=== PATIENT | male | born 1945 | race Caucasian/White ===

== ENCOUNTER 2017-01-14 11:08 | Emergency (ER) | payer OTHER, MEDICARE, BC ==
[2017-01-14 11:23] VITALS: BP 156/86
[2017-01-14] MEDS ORDERED: Lidocaine 1% 50 ML MDV INJECT ONE (11:40)
[2017-01-14] MEDS ORDERED: Acetaminophen 325 MG Tab PO ONE (11:40)
--- NOTE | 2017-01-14 12:26 | CR ---
Chest and right ribs: Frontal view of the chest was obtained as well as 3 views of the right ribs. Comparison: Previous chest x-ray of 03/15/14. Heart size is normal. Tortuous thoracic aorta is seen. Lungs are clear. Degenerative endplate spurring noted within the spine. No discrete fracture or other right sided rib abnormality is seen. Impression: 1. No discrete right sided rib abnormality is appreciated. 2. Nothing acute is seen on accompanying chest x-ray. Diagnostic code #2
--- NOTE | 2017-01-14 13:04 | EDM.PDOC ---
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 He ended up with contusion injury to his left thigh, injury to his right chest and laceration injuries to the right small distal finger tip. Right chest pain is worse with deep breathing and with movement. He has been ambulatory. No LOC. No nausea vomiting. No major neck or back discomfort. Left Leg Pain Score (Numeric/FACES): 6 Right Chest Pain Score (Numeric/FACES): 6 - Related Data Allergies Allergy/AdvReac Type Severity Reaction Status Date / Time Sulfa (Sulfonamide Allergy Hives Verified 01/14/17 11:23 Antibiotics) Home Meds: Home Meds Aspirin [Adult Low Dose Aspirin EC] 81 mg PO DAILY 09/06/14 [History] Hydrochlorothiazide 25 mg PO DAILY 09/06/14 [History] Metoprolol Succinate [Toprol XL] 25 mg PO DAILY 09/06/14 [History] Multivitamin [Multivitamins] 1 each PO DAILY 09/06/14 [History] Rosuvastatin [Crestor] 5 mg PO DAILY 09/06/14 [History] Tamsulosin [Flomax] 0.4 mg PO DAILY 09/06/14 [History] Ubidecarenone [Co Q-10] 100 mg PO DAILY 09/06/14 [History] Saw/Vit E/Sod Mona/Lyc/Beta/Pyg [Prostate Health Caplet] 1 tab PO DAILY 04/12/16 [History] Glucosamine/Chondro Nolasco A [Cosamin DS] 1 tab PO DAILY 01/14/17 [History] Past Medical History HEENT History: Reports: Impaired Vision, Other (See Below) Other HEENT History: wears glasses, dentures Cardiovascular History: Reports: CAD, High Cholesterol, Hypertension, [place], Stents Respiratory History: Reports: Asthma Gastrointestinal History: Reports: GERD Genitourinary History: Reports: BPH, Prostate Disorder, Retention, Urinary, Other (See Below) Other Genitourinary History: retention, L hydronephrosis, R renal cyst, elevated PSA, hesitency, renal insufficiency, prosate biopsy, cystoscopy, prostate surgery 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 Musculoskeletal History: Reports: Other (See Below) Other Musculoskeletal History: restless legs syndrome, degenerative joint disease Psychiatric History: Reports: None Hematologic History: Reports: None Immunologic History: Reports: None Oncologic (Cancer) History: Reports: Squamous Cell Carcinoma Dermatologic History: Reports: Other (See Below) Other Dermatologic History: lip cancer, lipoma excision - Past Surgical History GI Surgical History: Reports: Colonoscopy, EGD Musculoskeletal Surgical History: Reports: Other (See Below) Social & Family History - Family History Family Medical History: Noncontributory - Tobacco Use Smoking Status *Q: Unknown Ever Smoked Month Tobacco Last Used: 1968 - Caffeine Use Caffeine Use: Reports: None - Recreational Drug Use Recreational Drug Use: No Drug Use in Last 12 Months: No Review of Systems - Review of Systems Review Of Systems: See Below Constitutional: Reports: No Symptoms Eyes: Reports: No Symptoms Ears: Reports: No Symptoms Nose: Reports: No Symptoms Mouth/Throat: Reports: No Symptoms Respiratory: Reports: Pleuritic Chest Pain (Right-sided). Denies: Shortness of Breath, Hemoptysis Cardiovascular: Reports: Chest Pain GI/Abdominal: Denies: Abdominal Pain (Right-sided), Nausea, Vomiting Musculoskeletal: Denies: Neck Pain, Arm Pain, Back Pain Skin: Reports: Bruising (Large bruise left medial thigh) Neurological: Denies: Headache, Numbness, Tingling ED EXAM, GENERAL - Physical Exam Exam: See Below General Appearance: Alert, Mild Distress Eye Exam: Bilateral Eye: PERRL Throat/Mouth: Normal Inspection Head: Atraumatic. No: Facial Swelling Neck: Supple, Full Range of Motion Respiratory/Chest: No Respiratory Distress, Lungs Clear, Other (Tender right anterior lateral lower chest wall area, no bruising or abrasion, no swelling). No: Wheezing, Stridor, Splinting Cardiovascular: Regular Rate, Rhythm GI/Abdominal: Soft, Non-Tender Back Exam: Normal Inspection Extremities: Normal Inspection, Normal Range of Motion Neurological: Alert, Oriented, No Motor/Sensory Deficits Skin Exam: Warm, Dry, Normal Color Course - Vital Signs Last Recorded V/S: Last Vital Signs Temp 97.9 F 01/14/17 11:19 Pulse 74 01/14/17 11:19 Resp 18 01/14/17 11:19 BP 156/86 H 01/14/17 11:19 Pulse Ox 100 01/14/17 11:19 - Orders/Labs/Meds Meds: Medications Discontinued Medications Generic Name Dose Route Start Last Admin Trade Name Eyad PRN Reason Stop Dose Admin Acetaminophen 975 mg 01/14/17 11:40 01/14/17 11:53 Tylenol PO 01/14/17 11:41 975 mg NOW ONE Administration Lidocaine HCl 50 ml 01/14/17 11:40 01/14/17 11:53 Xylocaine 1% INJECT 01/14/17 11:41 50 ml ONETIME ONE Administration Departure - Departure Time of Disposition: 13:00 Disposition: Home, Self-Care 01 Condition: Fair Clinical Impression: Finger laceration Qualifiers: Encounter type: initial encounter Finger: little finger Damage to nail status: without damage Foreign body presence: without foreign body Laterality: right Qualified Code(s): S61.216A - Laceration without foreign body of right little finger without damage to nail, initial encounter Chest wall contusion Qualifiers: Encounter type: initial encounter Laterality: right Qualified Code(s): S20.211A - Contusion of right front wall of thorax, initial encounter Contusion of thigh, left Qualifiers: Encounter type: initial encounter Qualified Code(s): S70.12XA - Contusion of left thigh, initial encounter - Discharge Information Instructions: Contusion, [id number], Laceration Care, Adult, [id number] Referrals: Jenna Paul [facility] [Ordering Only Provider] - Forms: ED Department Discharge, ED Return to Work/School Form Additional Instructions: Laceration care instructions, leave dressing on until tomorrow evening, then change once or twice daily, keep protected well when you do return back to work , stitches out in about 10 days. There is no charge if you have those taken out at our [facility] medical clinic. Alternate Tylenol and ibuprofen as needed for discomfort, Edward wrap left thigh, specs and elevation for swelling right if possible for recheck, return to ED as needed.
== END 2017-01-14 13:50 | disposition home or self-care (01) ==
LOC: JD.ED 11:08
DX: S61.216A Laceration without foreign body of right little finger without damage to nail, initial encounter (principal); S20.211A Contusion of right front wall of thorax, initial encounter; S70.12XA Contusion of left thigh, initial encounter; E78.00 Pure hypercholesterolemia, unspecified; I10 Essential (primary) hypertension; Z88.2 Allergy status to sulfonamides; Z79.82 Long term (current) use of aspirin; Z79.899 Other long term (current) drug therapy; X58.XXXA Exposure to other specified factors, initial encounter; Y93.89 Activity, other specified
CPT/HCPCS: 71101; 99283; A9270; 12011

== ENCOUNTER 2017-02-26 08:46 | Emergency (ER) | payer OTHER, MEDICARE, BC ==
[2017-02-26] MEDS ORDERED: HYDROmorphone 1 MG/ML Syringe IVPUSH ONE (08:59)
[2017-02-26] MEDS ORDERED: Lidocaine 1% 10 ML MDV INJECT ONE (09:00)
[2017-02-26] MEDS ORDERED: Dextrose 5%-0.9% NaCl 1,000 ML IV SCH (09:00)
[2017-02-26] MEDS ORDERED: Metoclopramide 10 MG/2 ML SDV IVPUSH ONE (09:00)
[2017-02-26 09:03] VITALS: BP 153/87
--- NOTE | 2017-02-26 09:04 | EDM.PDOC ---
ED HPI GENERAL MEDICAL PROBLEM - General Chief Complaint: Trauma Stated Complaint: SHOULDER PAIN, LIP LAC Time Seen by Provider: 02/26/17 08:59 Source of Information: Reports: Patient History Limitations: Reports: No Limitations - History of Present Illness INITIAL COMMENTS - FREE TEXT/NARRATIVE: 71-year-old male presents the ED after being injured in the workplace this morning. At approximate 0830 hrs. this morning while working at the [employer] he was knocked down and then mauled by a cow. He states he was struck repeatedly by her head in the left arm and shoulder area. He suffered blunt force trauma to his midface is well. This resulted in a laceration to his inner upper lip. States he has severe pain and limited mobility of his left shoulder. He has had previous traumatic dislocation of the shoulder in the past and believes he had surgical repair 1. No loss of consciousness. He denies any head injury or neck injury. Denies any rib pain breathing is fine. He can walk without difficulties in his knees hips or lower back. 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) (None.) Left Shoulder Pain Score (Numeric/FACES): 2 - Related Data Allergies Allergy/AdvReac Type Severity Reaction Status Date / Time Sulfa (Sulfonamide Allergy Hives Verified 02/26/17 08:57 Antibiotics) Home Meds: Home Meds Aspirin [Adult Low Dose Aspirin EC] 81 mg PO DAILY 09/06/14 [History] Hydrochlorothiazide 25 mg PO DAILY 09/06/14 [History] Metoprolol Succinate [Toprol XL] 25 mg PO DAILY 09/06/14 [History] Multivitamin [Multivitamins] 1 each PO DAILY 09/06/14 [History] Rosuvastatin [Crestor] 5 mg PO DAILY 09/06/14 [History] Tamsulosin [Flomax] 0.4 mg PO DAILY 09/06/14 [History] Ubidecarenone [Co Q-10] 100 mg PO DAILY 09/06/14 [History] Saw/Vit E/Sod Mona/Lyc/Beta/Pyg [Prostate Health Caplet] 1 tab PO DAILY 04/12/16 [History] Glucosamine/Chondro Nolasco A [Cosamin DS] 1 tab PO DAILY 01/14/17 [History] Past Medical History HEENT History: Reports: Impaired Vision, Other (See Below) Other HEENT History: wears glasses, dentures Cardiovascular History: Reports: CAD, High Cholesterol, Hypertension, [place], Stents Respiratory History: Reports: Asthma Gastrointestinal History: Reports: GERD Genitourinary History: Reports: BPH, Prostate Disorder, Retention, Urinary, Other (See Below) Other Genitourinary History: retention, L hydronephrosis, R renal cyst, elevated PSA, hesitency, renal insufficiency, prosate biopsy, cystoscopy, 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 Musculoskeletal History: Reports: Other (See Below) Other Musculoskeletal History: restless legs syndrome, degenerative joint disease Psychiatric History: Reports: None Hematologic History: Reports: None Immunologic History: Reports: None Oncologic (Cancer) History: Reports: Squamous Cell Carcinoma Dermatologic History: Reports: Other (See Below) Other Dermatologic History: lip cancer, lipoma excision - Past Surgical History GI Surgical History: Reports: Colonoscopy, EGD Musculoskeletal Surgical History: Reports: Other (See Below) Social & Family History - Family History Family Medical History: Noncontributory - Tobacco Use Smoking Status *Q: Unknown Ever Smoked Month Tobacco Last Used: 1968 - Caffeine Use Caffeine Use: Reports: None - Recreational Drug Use Recreational Drug Use: No Drug Use in Last 12 Months: No - Living Situation & Occupation Living situation: Reports: Occupation: Employed Review of Systems - Review of Systems Review Of Systems: See Below Constitutional: Reports: No Symptoms Eyes: Reports: No Symptoms Ears: Reports: No Symptoms Nose: Reports: No Symptoms Mouth/Throat: Reports: Lip Swelling (Has a swollen left upper lip and a 1.5 cm jagged laceration to the inner surface of the lip where came in contact with his dentures.), Other (Small caught right lower lip that will not require sutures.). Denies: Loose Teeth, Pain, Throat Swelling, Hoarse Voice Respiratory: Reports: No Symptoms Cardiovascular: Reports: No Symptoms GI/Abdominal: Reports: No Symptoms Genitourinary: Reports: Other (Has known BPH.) Musculoskeletal: Reports: Other Skin: Reports: No Symptoms Neurological: Reports: No Symptoms ED EXAM, GENERAL - Physical Exam Exam: See Below Exam Limited By: No Limitations General Appearance: Alert, WD/WN, Mild Distress, Other (Obvious trauma to the midface.) Eye Exam: Bilateral Eye: Normal Inspection, PERRL Throat/Mouth: Other (Has a laceration to the inner aspect of the upper lip in the midline and is a jagged 1.5 cm laceration. It appears to come in contact with his dentures. Dentures appear to be intact. Small puncture wound to the right lower lip with that will not require sutures.) Head: Atraumatic, Normocephalic Neck: Normal Inspection, Supple, Non-Tender, Full Range of Motion. No: Lymphadenopathy (L), Lymphadenopathy (R) Respiratory/Chest: No Respiratory Distress, Lungs Clear, Normal Breath Sounds, Other (From compression of his ribs and sternum caused him no pain) Cardiovascular: Normal Peripheral Pulses, Regular Rate, Rhythm, No Edema, No Gallop, No Murmur Peripheral Pulses: 1+: Posterior Tibial (L), Posterior Tibial (R), Dorsalis Pedis (L), Dorsalis Pedis (R) GI/Abdominal: Normal Bowel Sounds, Soft, Non-Tender, No Organomegaly, No Abnormal Bruit, No Mass Back Exam: Normal Inspection, Full Range of Motion. No: CVA Tenderness (L), CVA Tenderness (R) Extremities: Normal Inspection, Limited Range of Motion (Patient has very limited forward flexion or abduction of the left shoulder. He does have full pronation supination at the elbow. The wrist has full flexion-extension abduction and abduction. Clinically he has flattening of the shoulder laterally suggesting an anterior dislocation.) Neurological: Alert, Oriented, CN II-XII Intact, Normal Cognition, Normal Gait, No Motor/Sensory Deficits Psychiatric: Normal Affect, Normal Mood Skin Exam: Warm, Dry, Intact, Normal Color, No Rash ED TRAUMA PROCEDURES - Laceration/Wound Repair Middle Face Lac/Wound Length In cm: 3.5 (Patient had 2 lacerations involving his midline of upper lip. The superiormost lesion was 1 cm in length and sutured 2. The lower lesion was 2.5 cm in length and sutured 5.) Appearance: Subcutaneous, Clean Anesthetic Type: Local Local Anesthesia - Lidocaine (Xylocaine): 1% Plain Local Anesthetic Volume: 4cc Exploration/Debridement/Repair: Minimal Debridement Closed With: Sutures Suture Size: 4-0 # of Sutures: 8 Repaired With: Vicryl - Joint Reduction Site: Shoulder (L) Sedation: Conscious Sedation (Utilized 5 mg of Versed and 100 mg of fentanyl to provide satisfactory sedation.) Pre-Procedure NV Status: Normal Post-Procedure NV Status: Normal Technique: Traction/Counter Traction Number of Attempts: 2 Post-Reduction Imaging: Completely Reduced, No Fracture Seen Joint Reduction Complications: No Course - Vital Signs Last Recorded V/S: Last Vital Signs Temp 36.3 C 02/26/17 08:57 Pulse 74 02/26/17 08:57 Resp 16 02/26/17 08:57 BP 153/87 H 02/26/17 08:57 Pulse Ox 96 02/26/17 08:57 - Orders/Labs/Meds Orders: Active Orders 24 hr Category Date Time Status Dextrose 5%-0.9% NaCl [Dextrose 5%-Normal Saline] 1,000 Med 02/26/17 09:00 Active ml IV ASDIRECTED Medication Orders Dextrose/Sodium Chloride (Dextrose 5%-Normal Saline) 1,000 mls @ 150 mls/hr IV ASDIRECTED RIMA Last Admin: 02/26/17 09:33 Dose: 150 mls/hr Meds: Medications Generic Name Dose Route Start Last Admin Trade Name Freq PRN Reason Stop Dose Admin Dextrose/Sodium Chloride 1,000 mls @ 150 mls/hr 02/26/17 09:00 02/26/17 09:33 Dextrose 5%-Normal Saline IV 150 mls/hr ASDIRECTED RIMA Administration Discontinued Medications Generic Name Dose Route Start Last Admin Trade Name Freq PRN Reason Stop Dose Admin Fentanyl 100 mcg 02/26/17 09:41 02/26/17 10:08 Sublimaze IVPUSH 02/26/17 09:42 100 mcg ONETIME ONE Administration Fentanyl Confirm 02/26/17 09:45 02/26/17 10:01 Sublimaze Administered 02/26/17 09:46 Not Given Dose 100 mcg .ROUTE .STK-MED ONE Hydromorphone HCl 1 mg 02/26/17 08:59 02/26/17 09:18 Dilaudid IVPUSH 02/26/17 09:00 1 mg ONETIME ONE Administration Lidocaine HCl 10 ml 02/26/17 09:00 02/26/17 09:18 Xylocaine 1% INJECT 02/26/17 09:01 10 ml ONETIME ONE Administration Metoclopramide HCl 7.5 mg 02/26/17 09:00 02/26/17 09:18 Reglan IVPUSH 02/26/17 09:01 7.5 mg ONETIME ONE Administration Midazolam HCl 5 mg 02/26/17 09:41 02/26/17 10:21 Versed 1 Mg/Ml IVPUSH 02/26/17 09:42 Not Given ONETIME ONE Midazolam HCl Confirm 02/26/17 09:46 02/26/17 10:01 Versed 1 Mg/Ml Administered 02/26/17 09:47 Not Given Dose 6 mg .ROUTE .STK-MED ONE Midazolam HCl 5 mg 02/26/17 10:13 02/26/17 09:48 Versed 1 Mg/Ml IVPUSH 02/26/17 10:14 5 mg ONETIME ONE Administration - Radiology Interpretation Free Text/Narrative:: 71-year-old male presents to the ED with work-related injuries. Patient states he works at the [employer] and was knocked down by a cow this morning. He was then more by her head extensively with blunt trauma to his left shoulder and mid face. He has suffered a jagged laceration to the inner aspect of his upper lip that is going to require sutures. No dental injuries to his dentures. Injuries otherwise are to his left shoulder with suspect anterior dislocation. He has good radial and ulnar pulses. Plan IV D5 normal saline at 150 mils per hour. Dilaudid 1 mg IV with Reglan 7.5 mg IV at this time x-rays of the left shoulder to be obtained. Lidocaine ordered to allow repair of his lip. - Re-Assessments/Exams Free Text/Narrative Re-Assessment/Exam: 02/26/17 09:19 x-rays of the left shoulder confirmed an anterior dislocation. On reassessment he has no axillary nerve palsy. He has normal abduction and abduction of his fingers and normal station sensation to the dorsal aspect of his left radial hand in the radial nerve distribution. 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 I will fix his lip laceration while he is under the effect of conscious sedation with Vicryl suture. 02/26/17 10:10 reduced the left shoulder under conscious sedation at 0955 hrs. Countertraction traction was provided as well as external rotation to establish reduction. A portable x-ray will be ordered to assess position. I then proceeded to repair the 2 lacerations in his upper lip under local anesthetic. Utilizing 1% lidocaine. The uppermost laceration is 1 cm in length in the lower laceration was 2.5 cm in length. 2 sutures were placed in the upper wound and 5 in the lower wound. Utilized Vicryl 4-0. The sutures should follow in their own will not have to be removed. 02/26/17 10:27 Postreduction films reveal return of humeral head to anatomical position within the glenoid fossa. A small Hill-Sachs deformity--compression fracture is identified. Bones do appear to be osteopenic. There is also evidence of a well Corticated bony density off the posterior glenoid compatible with an old fracture likely related to his previous dislocation. Mild degenerative changes are appreciated within the before meals joint as well with both the inferior and superior spurring. Departure - Departure Time of Disposition: 12:21 Disposition: Home, Self-Care 01 Condition: Fair Clinical Impression: Lip laceration Qualifiers: Encounter type: initial encounter Qualified Code(s): S01.511A - Laceration without foreign body of lip, initial encounter Traumatic anterior dislocation of left shoulder Qualifiers: Encounter type: initial encounter Qualified Code(s): S43.015A - Anterior dislocation of left humerus, initial encounter - Discharge Information Referrals: Toña Paul MD [Primary Care Provider] - Forms: ED Department Discharge, ED Return to Work/School Form Additional Instructions: Evaluation in the emergency room today in regards to work related injury. While at work this morning at the local [employer]'s you were knocked down by a cow and then mauled excessively by her head butting. This resulted in an anterior dislocation of your left shoulder without any fractures of the upper arm bone or shoulder blade. You require conscious sedation 4 hours to relocate your humerus to its anatomical position. Postoperative x-rays revealed return to normal anatomical position. Treatment is to use shoulder immobilizer for the next 10-12 days. Suggest follow-up with Dr. Fulton orthopedic surgeon in 10-12 days time for review of left shoulder as I have some concerns about rotator cuff tear due to your age. Please phone [phone] to arrange an appointment. Secondly 1 and underwent laceration repair to her upper lip which we identified 2 separate lacerations. One was 1 cm in length and sutured 2 the larger laceration was 2.5 cm in length and was sutured 5. The sutures are cold Vicryl sutures and dissolve on their own over the next 7-10 days. Is okay to get them wet. The tissue will look widely she almost infected but expect this. It is normal tissue sloughing of skin. Lips do not become infected due to there gracious blood supply. Off work for a minimum of 3 weeks and likely longer May apply ice pack to the shoulder for one half hour out of every 4 hours today and tomorrow to reduce pain and swelling. May use Aleve 2 tablets every 8 hours to reduce inflammation and pain. May use Percocet 5/3/25 milligram tablets one or 2 every 4-6 hours for pain not controlled by leave alone. Shoulder immobilizer should remain on at all times except to bathe. Do not attempt to try and raise the arm above shoulder height until after review with orthopedic surgeon. - My Orders Last 24 Hours: My Active Orders 02/26/17 09:00 Dextrose 5%-0.9% NaCl [Dextrose 5%-Normal Saline] 1,000 ml IV ASDIRECTED - Assessment/Plan Last 24 Hours: My Active Orders 02/26/17 09:00 Dextrose 5%-0.9% NaCl [Dextrose 5%-Normal Saline] 1,000 ml IV ASDIRECTED
[2017-02-26] MEDS ORDERED: fentaNYL 100 MCG/2 ML SDV IVPUSH ONE (09:41)
[2017-02-26] MEDS ORDERED: Midazolam 1 MG/ML 5 ML SDV IVPUSH ONE (09:41)
[2017-02-26] MEDS ORDERED: fentaNYL 100 MCG/2 ML SDV ONE (09:45)
[2017-02-26] MEDS ORDERED: Midazolam 1 MG/ML 2 ML SDV ONE (09:46)
[2017-02-26] MEDS ORDERED: Midazolam 1 MG/ML 2 ML SDV IVPUSH ONE (10:13)
--- NOTE | 2017-02-26 11:11 | CR ---
Left shoulder: Two views of the left shoulder were obtained. Comparison: Prior shoulder study performed on the same day (9 AM). Previous dislocation has been reduced. Small Hill-Sachs compression fracture is seen. Osteopenia is noted. No additional abnormality is seen. Impression: 1. Findings as noted above. Diagnostic code #3
--- NOTE | 2017-02-26 11:11 | CR ---
Left shoulder: Two views of the left shoulder were obtained. Comparison: No prior shoulder study. Dislocated glenohumeral joint is seen in an anterior direction. Well-corticated bony density is seen off the posterior glenoid compatible with old fracture or dystrophic calcification on a degenerative basis. Mild degenerative change is seen within the acromioclavicular joint with both inferior and superior spurring. Mild degenerative endplate spurring is seen within the spine. Impression: 1. Dislocated left shoulder. 2. Other incidental findings. Diagnostic code #3
== END 2017-02-26 12:34 | disposition home or self-care (01) ==
LOC: JD.ED 08:46
DX: S43.015A Anterior dislocation of left humerus, initial encounter (principal); S01.511A Laceration without foreign body of lip, initial encounter; S40.011A Contusion of right shoulder, initial encounter; I10 Essential (primary) hypertension; E78.00 Pure hypercholesterolemia, unspecified; Z88.2 Allergy status to sulfonamides; Z79.82 Long term (current) use of aspirin; Z79.899 Other long term (current) drug therapy; W55.22XA Struck by cow, initial encounter; Y99.0 Civilian activity done for income or pay
CPT/HCPCS: 12013; 23650; 73030; 96361; 96374; 96375; 99152; 99284; J1170; J2250; J2765; J3010; J7042; 13131

== ENCOUNTER 2019-05-03 15:34 | Emergency (ER) | payer MEDICARE, BC ==
[2019-05-03 15:52] VITALS: BP 148/81; PULSE 66
[2019-05-03] MEDS ORDERED: Naproxen 500 MG Tab PO ONE (16:12)
[2019-05-03] MEDS ORDERED: predniSONE 20 MG Tab PO ONE (16:13)
--- NOTE | 2019-05-03 16:17 | EDM.PDOC ---
ED HPI GENERAL MEDICAL PROBLEM - General Chief Complaint: Lower Extremity Injury/Pain Stated Complaint: RT FOOT PAIN Time Seen by Provider: 05/03/19 16:00 Source of Information: Reports: Patient, RN Notes Reviewed - History of Present Illness INITIAL COMMENTS - FREE TEXT/NARRATIVE: 73 yr old male with R foot pain that has worsened over the past 1 to 2 days. No injury. Has noticed erythema base of R grt toe yesterday and today. No fever or chills. No ankle or leg pain. Right Foot Pain Score (Numeric/FACES): 8 - Related Data Allergies Allergy/AdvReac Type Severity Reaction Status Date / Time Sulfa (Sulfonamide Allergy Hives Verified 05/03/19 15:52 Antibiotics) Home Meds: Home Meds Aspirin [Adult Low Dose Aspirin EC] 81 mg PO DAILY 09/06/14 [History] Metoprolol Succinate [Toprol XL] 25 mg PO DAILY 09/06/14 [History] Multivitamin [Multivitamins] 1 each PO DAILY 09/06/14 [History] Rosuvastatin [Crestor] 5 mg PO DAILY 09/06/14 [History] Tamsulosin [Flomax] 0.4 mg PO DAILY 09/06/14 [History] Ubidecarenone [Co Q-10] 100 mg PO DAILY 09/06/14 [History] hydroCHLOROthiazide [Hydrochlorothiazide] 25 mg PO DAILY 09/06/14 [History] Saw/Vit E/Sod Mona/Lyc/Beta/Pyg [Prostate Health Caplet] 1 tab PO DAILY 04/12/16 [History] Glucosamine/Chondro Nolasco A [Cosamin DS] 1 tab PO DAILY 01/14/17 [History] Naproxen [Naprosyn] 500 mg PO Q12HR #14 tab 05/03/19 [Rx] predniSONE [Prednisone] 50 mg PO DAILY #6 tablet 05/03/19 [Rx] Past Medical History HEENT History: Reports: Impaired Vision, Other (See Below) Other HEENT History: wears glasses, dentures Cardiovascular History: Reports: CAD, High Cholesterol, Hypertension, CT, Stents Respiratory History: Reports: Asthma Gastrointestinal History: Reports: GERD Genitourinary History: Reports: BPH, Prostate Disorder, Retention, Urinary, Other (See Below) Other Genitourinary History: retention, L hydronephrosis, R renal cyst, elevated PSA, hesitency, renal insufficiency, prosate biopsy, cystoscopy, prostate surgery [employer] History: Reports: None Musculoskeletal History: Reports: Other (See Below) Other Musculoskeletal History: restless legs syndrome, degenerative joint disease Psychiatric History: Reports: None Hematologic History: Reports: None Immunologic History: Reports: None Oncologic (Cancer) History: Reports: Squamous Cell Carcinoma Dermatologic History: Reports: Other (See Below) Other Dermatologic History: lip cancer, lipoma excision - Past Surgical History GI Surgical History: Reports: Colonoscopy, EGD Musculoskeletal Surgical History: Reports: Other (See Below) Social & Family History - Family History Family Medical History: Noncontributory - Tobacco Use Smoking Status *Q: Never Smoker Second Hand Smoke Exposure: No - Caffeine Use Caffeine Use: Reports: Coffee - Recreational Drug Use Recreational Drug Use: No - Living Situation & Occupation Living situation: Reports: Occupation: Employed Review of Systems - Review of Systems Review Of Systems: See Below Constitutional: Denies: Chills, Fever Mouth/Throat: Reports: No Symptoms Respiratory: Denies: Shortness of Breath Cardiovascular: Denies: Chest Pain GI/Abdominal: Denies: Abdominal Pain, Nausea, Vomiting Musculoskeletal: Reports: Joint Pain (base of R grt toe) Skin: Reports: Erythema (R foot) Neurological: Denies: Numbness, Tingling, Weakness ED EXAM, GENERAL - Physical Exam Exam: See Below General Appearance: Alert, Mild Distress Eye Exam: Bilateral Eye: PERRL Head: Atraumatic. No: Facial Swelling Neck: Supple Respiratory/Chest: No Respiratory Distress, Lungs Clear, Normal Breath Sounds Cardiovascular: Regular Rate, Rhythm Extremities: Redness (medial base of R grt toe with local tenderness base of R grt toe, foot otherwise nontender and no other area of erythema), Other (ankle leg nontender and without warmth, swelling or erythema) Neurological: Alert, Oriented, No Motor/Sensory Deficits Skin Exam: Warm, Dry Course - Vital Signs Last Recorded V/S: Last Vital Signs Temp 97.7 F 05/03/19 15:50 Pulse 66 05/03/19 15:50 Resp 16 05/03/19 15:50 BP 148/81 H 05/03/19 15:50 Pulse Ox 99 05/03/19 15:50 - Orders/Labs/Meds Labs: Laboratory Tests 05/03/19 Range/Units 16:26 Uric Acid 6.6 (3.5-7.2) mg/dL Meds: Medications Discontinued Medications Generic Name Dose Route Start Last Admin Trade Name Eyad HINOJOSA Reason Stop Dose Admin Naproxen 500 mg 05/03/19 16:12 05/03/19 16:22 Naprosyn PO 05/03/19 16:13 500 mg ONETIME ONE Administration Prednisone 40 mg 05/03/19 16:13 05/03/19 16:22 Prednisone PO 05/03/19 16:14 40 mg ONETIME ONE Administration Departure - Departure Time of Disposition: 16:12 Disposition: Home, Self-Care 01 Condition: Fair Clinical Impression: Gout - Discharge Information Prescriptions: Naproxen [Naprosyn] 500 mg PO Q12HR #14 tab predniSONE [Prednisone] 50 mg PO DAILY #6 tablet Instructions: Gout, [id number] Referrals: Toña Paul MD [Primary Care Provider] - Forms: ED Department Discharge Additional Instructions: Rest and elevate foot as much as possible until pain swelling and redness resolving, Naprosyn 500 mg twice daily, own 50 mg every morning for the next 6 days, you may take Tylenol in addition every 6-8 hours for additional pain relief as needed. Symptoms should gradually get better over the next 3-4 days. See her regular medical provider in about 5-7 days for recheck, call for appointment. Uric acid level will be drawn today, those results will be available your regular medical provider's review at time of follow-up appointment. Sepsis Event Note - Evaluation Sepsis Screening Result: No Definite Risk - Focused Exam Date Exam was Performed: 05/10/19 Time Exam was Performed: 20:23
== END 2019-05-03 16:40 | disposition home or self-care (01) ==
LOC: JD.ED 15:34
DX: M10.9 Gout, unspecified (principal); I10 Essential (primary) hypertension; I25.2 Old myocardial infarction; Z88.2 Allergy status to sulfonamides; Z79.82 Long term (current) use of aspirin; Z79.899 Other long term (current) drug therapy
CPT/HCPCS: 36415; 84550; 99283; A9270

== ENCOUNTER 2019-10-03 11:44 | Emergency (ER) | payer MEDICARE, BC ==
[2019-10-03] MEDS ORDERED: Sodium Chloride 0.9% 10 ML Syringe FLUSH PRN (12:02)
--- NOTE | 2019-10-03 12:46 | EDM.PDOC ---
ED HPI GENERAL MEDICAL PROBLEM - General Chief Complaint: Genitourinary Problem Stated Complaint: SWOLLEN TESTICLE Time Seen by Provider: 10/03/19 12:02 Source of Information: Reports: Patient History Limitations: Reports: No Limitations - History of Present Illness INITIAL COMMENTS - FREE TEXT/NARRATIVE: Patient is a 74-year-old male who presents to the emergency department with complaints of a painful, swollen, left testicle. He states he first noticed this on Saturday which was about 4 days ago. Patient does have a history of BPH requiring self-catheterization. He has prophylactic Cipro that he may take as needed for urinary tract infections. He states about 2 days ago he noticed some blood in his urine and started taking his Cipro at that time. He has had no fever, chills, nausea, vomiting, diarrhea, or flank pain. Perineal Area Pain Score (Numeric/FACES): 8 - Related Data Allergies Allergy/AdvReac Type Severity Reaction Status Date / Time Sulfa (Sulfonamide Allergy Severe Hives Verified 10/03/19 11:59 Antibiotics) Home Meds: Home Meds Aspirin [Adult Low Dose Aspirin EC] 81 mg PO DAILY 09/06/14 [History] Metoprolol Succinate [Toprol XL] 25 mg PO DAILY 09/06/14 [History] Multivitamin [Multivitamins] 1 each PO DAILY 09/06/14 [History] Rosuvastatin [Crestor] 5 mg PO DAILY 09/06/14 [History] Tamsulosin [Flomax] 0.4 mg PO DAILY 09/06/14 [History] Ubidecarenone [Co Q-10] 100 mg PO DAILY 09/06/14 [History] hydroCHLOROthiazide [Hydrochlorothiazide] 25 mg PO DAILY 09/06/14 [History] Saw/Vit E/Sod Mona/Lyc/Beta/Pyg [Prostate Health Caplet] 1 tab PO DAILY 04/12/16 [History] Glucosamine/Chondro Nolasco A [Cosamin DS] 1 tab PO DAILY 01/14/17 [History] Naproxen [Naprosyn] 500 mg PO Q12HR #14 tab 05/03/19 [Rx] predniSONE [Prednisone] 50 mg PO DAILY #6 tablet 05/03/19 [Rx] Allopurinol [Zyloprim] 200 mg PO DAILY 10/03/19 [History] levoFLOXacin [Levaquin] 500 mg PO DAILY 10 Days #9 tab 10/03/19 [Rx] Past Medical History HEENT History: Reports: Impaired Vision, Other (See Below) Other HEENT History: wears glasses, dentures Cardiovascular History: Reports: CAD, High Cholesterol, Hypertension, [place], Stents Respiratory History: Reports: Asthma Gastrointestinal History: Reports: GERD Genitourinary History: Reports: BPH, Prostate Disorder, Retention, Urinary, Other (See Below) Other Genitourinary History: retention, L hydronephrosis, R renal cyst, elevated PSA, hesitency, renal insufficiency, prosate biopsy, cystoscopy, prostate surgery [employer] History: Reports: None Musculoskeletal History: Reports: Other (See Below) Other Musculoskeletal History: restless legs syndrome, degenerative joint disease Psychiatric History: Reports: None Hematologic History: Reports: None Immunologic History: Reports: None Oncologic (Cancer) History: Reports: Squamous Cell Carcinoma Dermatologic History: Reports: Other (See Below) Other Dermatologic History: lip cancer, lipoma excision - Past Surgical History GI Surgical History: Reports: Colonoscopy, EGD Musculoskeletal Surgical History: Reports: Other (See Below) Social & Family History - Family History Family Medical History: Noncontributory - Tobacco Use Smoking Status *Q: Never Smoker Second Hand Smoke Exposure: No - Caffeine Use Caffeine Use: Reports: Coffee - Recreational Drug Use Recreational Drug Use: No - Living Situation & Occupation Living situation: Reports: Occupation: Employed ED ROS GENERAL - Review of Systems Review Of Systems: See Below Constitutional: Reports: No Symptoms. Denies: Fever, Chills, Weakness HEENT: Reports: No Symptoms Respiratory: Reports: No Symptoms. Denies: Shortness of Breath, Cough Cardiovascular: Reports: No Symptoms Endocrine: Reports: No Symptoms GI/Abdominal: Reports: No Symptoms. Denies: Abdominal Pain, Diarrhea, Nausea, Vomiting : Reports: Hematuria, Urinary Retention, Other (left scrotum pain and swelling). Denies: Dysuria, Flank Pain, Frequency Musculoskeletal: Reports: No Symptoms Skin: Reports: No Symptoms Neurological: Reports: No Symptoms Psychiatric: Reports: No Symptoms Hematologic/Lymphatic: Reports: No Symptoms Immunologic: Reports: No Symptoms ED EXAM, RENAL/ - Physical Exam Exam: See Below Exam Limited By: No Limitations General Appearance: Alert, WD/WN, No Apparent Distress Respiratory/Chest: No Respiratory Distress, Lungs Clear, Normal Breath Sounds, No Accessory Muscle Use, Chest Non-Tender Cardiovascular: Normal Peripheral Pulses, Regular Rate, Rhythm, No Edema, No Gallop, No JVD, No Murmur, No Rub (Male) Exam: No Hernia, Scrotal Swelling (Left), Scrotum Tenderness (L), Testicular Tenderness (L) Neurological: Alert, Oriented, CN II-XII Intact, Normal Cognition, Normal Gait, Normal Reflexes, No Motor/Sensory Deficits Psychiatric: Normal Affect, Normal Mood Skin Exam: Warm, Dry, Intact, Normal Color, No Rash Course - Vital Signs Last Recorded V/S: Last Vital Signs Temp 97.4 F 10/03/19 11:56 Pulse Resp BP Pulse Ox - Orders/Labs/Meds Labs: Laboratory Tests 10/03/19 10/03/19 10/03/19 Range/Units 12:05 12:05 12:10 WBC 6.99 (4.23-9.07) K/mm3 RBC 4.69 (4.63-6.08) M/mm3 Hgb 13.8 (13.7-17.5) gm/dl Hct 42.6 (40.1-51.0) % MCV 90.8 (79.0-92.2) fl MCH 29.4 (25.7-32.2) pg MCHC 32.4 (32.2-35.5) g/dl RDW Std Deviation 45.5 H (35.1-43.9) fL Plt Count 162 L (163-337) K/mm3 MPV 11.8 (9.4-12.3) fl Neut % (Auto) 66.2 (34.0-67.9) % Lymph % (Auto) 24.7 (21.8-53.1) % [place] % (Auto) 7.9 (5.3-12.2) % Eos % (Auto) 0.7 L (0.8-7.0) Baso % (Auto) 0.4 (0.1-1.2) % Neut # (Auto) 4.62 (1.78-5.38) K/mm3 Lymph # (Auto) 1.73 (1.32-3.57) K/mm3 [place] # (Auto) 0.55 (0.30-0.82) K/mm3 Eos # (Auto) 0.05 (0.04-0.54) K/mm3 Baso # (Auto) 0.03 (0.01-0.08) K/mm3 Sodium 141 (136-145) mEq/L Potassium 3.4 L (3.5-5.1) mEq/L Chloride 105 (98-107) mEq/L Carbon Dioxide 29 (21-32) mEq/L Anion Gap 10.4 (5-15) BUN 12 (7-18) mg/dL Creatinine 1.2 (0.7-1.3) mg/dL Est Cr Clr Drug Dosing 53.19 mL/min Estimated GFR (MDRD) 59 (>60) mL/min BUN/Creatinine Ratio 10.0 L (14-18) Glucose 106 (83-115) mg/dL Calcium 8.8 (8.5-10.1) mg/dL Total Bilirubin 0.6 (0.2-1.0) mg/dL AST 49 H (15-37) U/L ALT 72 H (16-63) U/L Alkaline Phosphatase 123 H (46-116) U/L C-Reactive Protein 2.3 H* (<1.0) mg/dL Total Protein 6.8 (6.4-8.2) g/dl Albumin 3.3 L (3.4-5.0) g/dl Globulin 3.5 gm/dL Albumin/Globulin Ratio 0.9 L (1-2) Urine Color Yellow (Yellow) Urine Appearance Clear (Clear) Urine pH 7.0 (5.0-8.0) Ur Specific [place] 1.020 (1.005-1.030) Urine Protein Negative (Negative) Urine Glucose (UA) Negative (Negative) Urine Ketones Negative (Negative) Urine Occult Blood Trace-intact H (Negative) Urine Nitrite Negative (Negative) Urine Bilirubin Negative (Negative) Urine Urobilinogen 0.2 (0.2-1.0) Ur Leukocyte Esterase 1+ H (Negative) Urine RBC 0-5 (0-5) /hpf Urine WBC 5-10 H (0-5) /hpf Ur Squamous Epith Cells 0-5 (0-5) /hpf Urine Bacteria Few (FEW) /hpf Urine Mucus Few (FEW) /hpf Meds: Medications Discontinued Medications Generic Name Dose Route Start Last Admin Trade Name Freq PRN Reason Stop Dose Admin Levofloxacin 500 mg 10/03/19 13:51 10/03/19 14:00 Levaquin PO 10/03/19 13:52 500 mg ONETIME ONE Administration Sodium Chloride 10 ml 10/03/19 12:02 10/03/19 12:23 Saline Flush FLUSH 10 ml ASDIRECTED PRN Administration Keep Vein Open - Re-Assessments/Exams Free Text/Narrative Re-Assessment/Exam: Otology was grossly unremarkable. WBCs were normal. He was minimally elevated at 2.3. Alysis is significant for 1+ leukocyte esterase and 5-10 WBCs. The sound of the scrotum showed enlarged epididymides on both sides, difficult to exclude epididymitis. Small epididymal cyst on both sides believed to be incidental. Slight inhomogenous right testicle possibility of mild orchitis. Bilateral hydroceles. Based on this and patient's history of self- catheterization, we will treat for epididymitis with Levaquin. Discharge instructions as documented. Departure - Departure Time of Disposition: 13:52 Disposition: Home, Self-Care 01 Condition: Good Clinical Impression: Epididymitis - Discharge Information *PRESCRIPTION DRUG MONITORING PROGRAM REVIEWED*: No *COPY OF PRESCRIPTION DRUG MONITORING REPORT IN PATIENT SINCERE: No Prescriptions: levoFLOXacin [Levaquin] 500 mg PO DAILY 10 Days #9 tab Instructions: Epididymitis Referrals: Toña Paul MD [Primary Care Provider] - Forms: ED Department Discharge Additional Instructions: You were seen in the emergency department today for pain and swelling to your left testicle. Work-up included blood work, urinalysis, and an ultrasound of y our scrotum. Your blood work was found to be overall normal. Urinalysis did show a mild urinary tract infection. Ultrasound of the scrotum did reveal bilateral epididymitis which is an infection of the epididymis. You also have hydroceles which is a collection of fluid within the scrotum. Treatment for epididymitis is Levaquin. You have been started on this antibiotic. Take it once daily for 10 days. Your first dose was given in ER. You may use [id number] Tylenol or ibuprofen as needed for discomfort. If you should experience any worsening symptoms or develop fever, chills, nausea, or vomiting, would recommend that you return to the emergency department. Otherwise I would recommend that you follow-up with your primary care provider early next week for recheck. Sepsis Event Note (ED) - Evaluation Sepsis Screening Result: No Definite Risk
[2019-10-03] MEDS ORDERED: Levofloxacin 500 MG Tab PO ONE (13:51)
--- NOTE | 2019-10-04 11:31 | US ---
Testicular ultrasound: Multiple real-time images of the testicles were obtained. Right testicle is somewhat inhomogeneous suggesting edema within the right testicle. Left testicle has a homogeneous ultrasound appearance. Arterial and venous blood flow are noted within both testicles. Small epididymal cyst is noted on both sides. Both epididymis appears somewhat heterogeneous and are mildly enlarged. Bilateral hydroceles are noted. Measurements: Right testicle: 4.1 x 2.8 x 2.0 cm Left chest: 3.8 x 2.9 x 2.9 cm Impression: 1. Heterogeneous enlarged epididymides on both sides. Difficult to exclude epididymitis. 2. Small epididymal cyst on both sides believed to be incidental. 3. Slightly inhomogeneous right testicle possibly due to mild orchitis. Follow-up testicular ultrasound is recommended in 6 months to make sure this finding does not persist as testicular mass. 4. Bilateral hydroceles. Diagnostic code #9 This report was dictated in MDT I agree with preliminary report from ad (additional findings as noted above and recommendation), finalized on 10/03/19, 2:25 PM Central Daylight Time, code #2
== END 2019-10-03 14:10 | disposition home or self-care (01) ==
LOC: JD.ED 11:44
DX: N45.1 Epididymitis (principal); I10 Essential (primary) hypertension; E78.00 Pure hypercholesterolemia, unspecified; N40.1 Benign prostatic hyperplasia with lower urinary tract symptoms; R33.8 Other retention of urine; I25.10 Atherosclerotic heart disease of native coronary artery without angina pectoris; I25.2 Old myocardial infarction; Z79.899 Other long term (current) drug therapy; Z79.82 Long term (current) use of aspirin; Z88.2 Allergy status to sulfonamides
CPT/HCPCS: 36415; 76870; 80053; 81001; 85025; 86140; 87086; 93975; 99284; A9270; 99283

== ENCOUNTER 2019-12-12 14:10 | Emergency (ER) | payer MEDICARE, BC ==
[2019-12-12] MEDS ORDERED: Lidocaine 1% 10 ML MDV INJECT ONE (14:22)
--- NOTE | 2019-12-12 14:26 | EDM.PDOC ---
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 He states that he is up to date on his TDAP. States "I just had one". Denies any numbness or paresthesia distal to the laceration. He denies any difficulty moving his thumb. Left Hand Pain Score (Numeric/FACES): 8 - Related Data Allergies Allergy/AdvReac Type Severity Reaction Status Date / Time Sulfa (Sulfonamide Allergy Severe Hives Verified 12/12/19 14:30 Antibiotics) Home Meds: Home Meds Aspirin [Adult Low Dose Aspirin EC] 81 mg PO DAILY 09/06/14 [History] Metoprolol Succinate [Toprol XL] 25 mg PO DAILY 09/06/14 [History] Multivitamin [Multivitamins] 1 each PO DAILY 09/06/14 [History] Rosuvastatin [Crestor] 5 mg PO DAILY 09/06/14 [History] Tamsulosin [Flomax] 0.4 mg PO DAILY 09/06/14 [History] Ubidecarenone [Co Q-10] 100 mg PO DAILY 09/06/14 [History] hydroCHLOROthiazide [Hydrochlorothiazide] 25 mg PO DAILY 09/06/14 [History] Saw/Vit E/Sod Mona/Lyc/Beta/Pyg [Prostate Health Caplet] 1 tab PO DAILY 04/12/16 [History] Glucosamine/Chondro Nolasco A [Cosamin DS] 1 tab PO DAILY 01/14/17 [History] predniSONE [Prednisone] 50 mg PO DAILY #6 tablet 05/03/19 [Rx] Allopurinol [Zyloprim] 200 mg PO DAILY 10/03/19 [History] Past Medical History HEENT History: Reports: Impaired Vision, Other (See Below) Other HEENT History: wears glasses, dentures Cardiovascular History: Reports: CAD, High Cholesterol, Hypertension, CT, Stents Respiratory History: Reports: Asthma Gastrointestinal History: Reports: GERD Genitourinary History: Reports: BPH, Prostate Disorder, Retention, Urinary, Other (See Below) Other Genitourinary History: retention, L hydronephrosis, R renal cyst, elevated PSA, hesitency, renal insufficiency, prosate biopsy, cystoscopy, prostate surgery BOTTLER History: Reports: 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 Musculoskeletal History: Reports: Other (See Below) Other Musculoskeletal History: restless legs syndrome, degenerative joint disease Psychiatric History: Reports: None Hematologic History: Reports: None Immunologic History: Reports: None Oncologic (Cancer) History: Reports: Squamous Cell Carcinoma Dermatologic History: Reports: Other (See Below) Other Dermatologic History: lip cancer, lipoma excision - Past Surgical History GI Surgical History: Reports: Colonoscopy, EGD Musculoskeletal Surgical History: Reports: Other (See Below) Social & Family History - Family History Family Medical History: Noncontributory - Caffeine Use Caffeine Use: Reports: Coffee - Living Situation & Occupation Living situation: Reports: Occupation: Employed ED ROS GENERAL - Review of Systems Review Of Systems: Comprehensive ROS is negative, except as noted in HPI. ED EXAM, SKIN/RASH Exam: See Below General Appearance: Alert, WD/WN, No Apparent Distress Respiratory/Chest: No Respiratory Distress, Lungs Clear, Normal Breath Sounds, No Accessory Muscle Use, Chest Non-Tender Cardiovascular: Normal Peripheral Pulses, Regular Rate, Rhythm, No Edema, No Gallop, No JVD, No Murmur, No Rub Extremities: Other (5 cm gaping vertical laceration to the dorsal aspect of the left hand proximal to the thumb. Moderate amount of bleeding. CMS intact to left thumb. Full ROM and strength to flexion and extension.) Neurological: Alert, Oriented, CN II-XII Intact, Normal Cognition, Normal Gait, Normal Reflexes, No Motor/Sensory Deficits Psychiatric: Normal Affect, Normal Mood ED SKIN PROCEDURES - Laceration/Wound Repair Left Dorsal Hand Appearance: Subcutaneous, Linear, Clean Distal NVT: Neuro & Vascular Intact, No Tendon Injury Local Anesthesia - Lidocaine (Xylocaine): 1% Plain Local Anesthetic Volume: 4cc Skin Prep: Providone-Iodine (Betadine), Saline Exploration/Debridement/Repair: Wound Explored, In a Bloodless Field, Explored to Base, No Foreign Material Found Closed with: Sutures Lac/Wound length In cm: 5 Suture Size: 4-0 # of Sutures: 8 Suture Type: Nylon, Interrupted Suture Size: 4-0 # of Sutures: 3 Repaired with: Vicryl Sterile Dressing Applied: Nurse Tetanus Status Addressed: Yes Complications: No Course - Vital Signs Last Recorded V/S: Last Vital Signs Temp 98.9 F 12/12/19 14:26 Pulse 72 12/12/19 14:26 Resp 18 12/12/19 14:26 BP 136/76 12/12/19 14:26 Pulse Ox 97 12/12/19 14:26 - Orders/Labs/Meds Meds: Medications Discontinued Medications Generic Name Dose Route Start Last Admin Trade Name Eyad PRN Reason Stop Dose Admin Lidocaine HCl 10 ml 12/12/19 14:22 12/12/19 14:34 Xylocaine 1% INJECT 12/12/19 14:23 10 ml ONETIME ONE Administration Departure - Departure Time of Disposition: 15:02 Disposition: Home, Self-Care 01 Condition: Good Clinical Impression: Laceration of hand Qualifiers: Encounter type: initial encounter Foreign body presence: without foreign body Laterality: left Qualified Code(s): S61.412A - Laceration without foreign body of left hand, initial encounter - Discharge Information *PRESCRIPTION DRUG MONITORING PROGRAM REVIEWED*: No *COPY OF PRESCRIPTION DRUG MONITORING REPORT IN PATIENT SINCERE: No Instructions: Sutures, [place], or Adhesive Wound Closure, [id number] Referrals: Toña Paul RN [Primary Care Provider] - Forms: ED Department Discharge Additional Instructions: You were seen in the emergency department today for a laceration to your left hand. The wound was cleansed and closed with 8 sutures. These should stay intact for 10 days. After that time they may be removed in the clinic by a nurse. Keep the wound clean and dry. Wash with normal soap and water twice daily. Do not submerge the wound in water. Watch for signs of infection including increased redness, swelling, or purulent drainage. If these should occur, you should be seen either in the clinic or in the emergency department as antibiotic treatment may be needed. Return to the ER as needed. Sepsis Event Note (ED) - Focused Exam Vital Signs: Vital Signs Temp Pulse Resp BP Pulse Ox 12/12/19 14:26 98.9 F 72 18 136/76 97
[2019-12-12 14:30] VITALS: BP 136/76; PULSE 72
== END 2019-12-12 15:15 | disposition home or self-care (01) ==
LOC: JD.ED 14:10
DX: S61.412A Laceration without foreign body of left hand, initial encounter (principal); I10 Essential (primary) hypertension; E78.00 Pure hypercholesterolemia, unspecified; I25.10 Atherosclerotic heart disease of native coronary artery without angina pectoris; I25.2 Old myocardial infarction; N40.0 Benign prostatic hyperplasia without lower urinary tract symptoms; R33.8 Other retention of urine; J45.909 Unspecified asthma, uncomplicated; Z88.2 Allergy status to sulfonamides; Z79.82 Long term (current) use of aspirin; Z79.899 Other long term (current) drug therapy; W26.8XXA Contact with other sharp object(s), not elsewhere classified, initial encounter
CPT/HCPCS: 12002; 99282; J2001

== ENCOUNTER 2021-09-04 12:09 | Emergency (ER) | payer MEDICARE, BC ==
[2021-09-04 12:38] VITALS: BP 119/69; PULSE 67
== END 2021-09-04 14:32 | disposition home or self-care (01) ==
LOC: JD.ED 12:09
DX: R55 Syncope and collapse (principal); R42 Dizziness and giddiness; I25.10 Atherosclerotic heart disease of native coronary artery without angina pectoris; E78.00 Pure hypercholesterolemia, unspecified; I25.2 Old myocardial infarction; I10 Essential (primary) hypertension; Z79.899 Other long term (current) drug therapy; Z79.82 Long term (current) use of aspirin; Z88.2 Allergy status to sulfonamides
CPT/HCPCS: 93005; 93010; 99283; 99284-25

== ENCOUNTER 2022-10-18 11:50 | Emergency (ER) | payer MEDICARE, BC ==
[2022-10-18] MEDS ORDERED: Lactated Ringers 1,000 ML IV ONE (12:24)
[2022-10-18 12:37] LABS: BASOPHILS ABSOLUTE AUTO 0.02 K/mm3 (0.01-0.08); BASOPHILS PERCENT AUTO 0.4 % (0.1-1.2); EOSINOPHILS ABSOLUTE AUTO 0.03 K/mm3 (0.04-0.54); EOSINOPHILS PERCENT AUTO 0.6 (0.8-7.0); HEMATOCRIT 38.1 % (40.1-51.0); HEMOGLOBIN 12.2 gm/dl (13.7-17.5); IMMATURE GRAN ABSOLUTE AUTO 0.01 K/mm3 (0.00-0.10); IMMATURE GRAN PERCENT AUTO 0.2 % (<=1.0); LYMPHOCYTES ABSOLUTE AUTO 1.79 K/mm3 (1.32-3.57); LYMPHOCYTES PERCENT AUTO 38.7 % (21.8-53.1); MEAN CORPUSCULAR VOLUME 93.6 fl (79.0-92.2); MEAN PLATELET VOLUME 10.7 fl (9.4-12.3); MONOCYTES ABSOLUTE AUTO 0.69 K/mm3 (0.30-0.82); MONOCYTES PERCENT AUTO 14.9 % (5.3-12.2); NEUTROPHILS ABSOLUTE AUTO 2.09 K/mm3 (1.78-5.38); NEUTROPHILS PERCENT AUTO 45.2 % (34.0-67.9); PLATELET COUNT,PLT 158 K/mm3 (163-337); RED BLOOD CELL COUNT 4.07 M/mm3 (4.63-6.08); WHITE BLOOD CELL COUNT,WBC 4.63 K/mm3 (4.23-9.07)
[2022-10-18 12:59] LABS: A/G RATIO 0.8 (1-2); ALBUMIN 2.9 g/dl (3.4-5.0); BILIRUBIN TOTAL 0.5 mg/dL (0.2-1.0); CALCIUM 8.8 mg/dL (8.5-10.1); EST CRCL DRUG DOSING (CG) 60.88 mL/min; MAGNESIUM 2.2 mg/dL (1.8-2.4); PROTEIN TOTAL,TP 6.6 g/dl (6.4-8.2)
[2022-10-18 15:21] VITALS: BP 162/81; PULSE 59
== END 2022-10-18 14:30 | disposition home or self-care (01) ==
LOC: JD.ED 11:50
DX: T67.1XXA Heat syncope, initial encounter (principal); I25.10 Atherosclerotic heart disease of native coronary artery without angina pectoris; E78.00 Pure hypercholesterolemia, unspecified; K21.9 Gastro-esophageal reflux disease without esophagitis; I10 Essential (primary) hypertension; J45.909 Unspecified asthma, uncomplicated; I25.2 Old myocardial infarction; Z95.5 Presence of coronary angioplasty implant and graft; Z88.2 Allergy status to sulfonamides; Z79.899 Other long term (current) drug therapy; X58.XXXA Exposure to other specified factors, initial encounter
CPT/HCPCS: 36415; 80053; 83735; 84484; 85025; 93005; 96360; 99284; J7120; 93010; 99282

== ENCOUNTER 2023-04-03 07:44 | Day surgery (SDC) | payer MEDICARE, BC ==
[~2023-04-03 07:44] MED LIST: Lactated Ringers 1,000 ML IV SCH; Sodium Chloride 0.9% 10 ML Syringe FLUSH PRN; Sodium Chloride 0.9% 10 ML Syringe FLUSH SCH
[2023-04-03] MEDS ORDERED: Propofol 200 MG/20 ML SDV ONE (08:27)
[2023-04-03] MEDS ORDERED: fentaNYL 100 MCG/2 ML SDV ONE (08:27)
[2023-04-03] MEDS ORDERED: Lidocaine 2% 5 ML SDV ONE (08:34)
[2023-04-03] MEDS ORDERED: Sodium Chloride 0.9% 10 ML Syringe FLUSH SCH (09:00)
[2023-04-03 11:16] VITALS: BP 132/72; PULSE 64
== END 2023-04-03 10:45 | disposition home or self-care (01) ==
LOC: JD.SDS 07:44
PROVIDERS: ATTEND Surgery
DX: D12.3 Benign neoplasm of transverse colon (principal); D12.2 Benign neoplasm of ascending colon; K29.50 Unspecified chronic gastritis without bleeding; K20.90 Esophagitis, unspecified without bleeding; K29.80 Duodenitis without bleeding; K63.5 Polyp of colon; K64.9 Unspecified hemorrhoids; G47.33 Obstructive sleep apnea (adult) (pediatric); K21.9 Gastro-esophageal reflux disease without esophagitis; E78.00 Pure hypercholesterolemia, unspecified; I10 Essential (primary) hypertension; Z87.891 Personal history of nicotine dependence; Z98.890 Other specified postprocedural states; Z79.899 Other long term (current) drug therapy; Z88.2 Allergy status to sulfonamides
CPT/HCPCS: 43239; 45380; J2704; J3010; J7120; J3490

== ENCOUNTER 2023-05-06 19:44 | Emergency (ER) | payer MEDICARE, BC ==
[2023-05-06] MEDS: amLODIPine 5 MG Tab PO ONE (20:50)
[2023-05-06 20:58] LABS: BASOPHILS ABSOLUTE AUTO 0.1 K/mm3 (0.0-0.2); BASOPHILS PERCENT AUTO 0.7 % (0.0-1.0); EOSINOPHILS ABSOLUTE AUTO 0.1 K/mm3 (0.0-0.4); EOSINOPHILS PERCENT AUTO 1.2 % (0.0-6.0); HEMOGLOBIN 12.5 gm/dl (14.0-18.0); IMMATURE GRAN ABSOLUTE AUTO 0.02 K/mm3 (0.00-0.05); IMMATURE GRAN PERCENT AUTO 0.3 % (0.0-0.4); LYMPHOCYTES ABSOLUTE AUTO 2.3 K/mm3 (1.0-4.8); MEAN CORPUSCULAR HEMOGLOBIN 30.9 pg (28.0-32.0); MEAN CORPUSCULAR HGB CONC 32.9 g/dl (32.0-36.0); MEAN CORPUSCULAR VOLUME 94.1 fl (83.0-99.0); MEAN PLATELET VOLUME 11.3 fl (9.4-12.4); MONOCYTES ABSOLUTE AUTO 0.5 K/mm3 (0.0-0.8); MONOCYTES PERCENT AUTO 7.4 % (0.0-8.0); NEUTROPHILS ABSOLUTE AUTO 3.8 K/mm3 (1.8-7.7); NEUTROPHILS PERCENT AUTO 56.4 % (41.0-71.0); PLATELET COUNT,PLT 142 K/mm3 (150-400); RED BLOOD CELL COUNT 4.04 M/mm3 (4.52-5.90); WHITE BLOOD CELL COUNT,WBC 6.79 K/mm3 (3.9-11.3)
[2023-05-06 21:25] LABS: ALBUMIN 3.2 g/dl (3.4-5.0); ANION GAP 12.3 (5-15); BILIRUBIN TOTAL 0.5 mg/dL (0.2-1.0); BUN/CREATININE RATIO 13.8 (14-18); CALCIUM 8.9 mg/dL (8.5-10.1); CREATININE 1.3 mg/dL (0.7-1.3); EST CRCL DRUG DOSING (CG) 46.83 mL/min; POTASSIUM,K 4.3 mEq/L (3.5-5.1); PROTEIN TOTAL,TP 6.4 g/dl (6.4-8.2)
[2023-05-06 22:31] VITALS: BP 185/72; PULSE 65
== END 2023-05-06 22:30 | disposition home or self-care (01) ==
LOC: JD.ED 19:44
DX: I10 Essential (primary) hypertension (principal); I25.2 Old myocardial infarction; I25.10 Atherosclerotic heart disease of native coronary artery without angina pectoris; J45.909 Unspecified asthma, uncomplicated; E78.00 Pure hypercholesterolemia, unspecified; Z88.2 Allergy status to sulfonamides; Z79.899 Other long term (current) drug therapy
CPT/HCPCS: 36415; 80053; 85025; 99283; A9270-GY

== ENCOUNTER 2023-10-17 07:21 | Day surgery (SDC) | payer MEDICARE, BC ==
[~2023-10-17 07:21] MED LIST changes: -Lactated Ringers 1,000 ML IV SCH; +Polymyxin B/Trimethoprim 10 ML Bottle EYELF SCH; -Sodium Chloride 0.9% 10 ML Syringe FLUSH PRN; -Sodium Chloride 0.9% 10 ML Syringe FLUSH SCH
[2023-10-17] MEDS: Ofloxacin 0.3% Ophth Soln 5 ML Bottle EYELF SCH (08:03)
[2023-10-17] MEDS: Brimonidine 0.2% Ophth Soln 5 ML Bottle EYELF SCH (08:24)
[2023-10-17] MEDS: Phenylephrine 2.5% Ophth Soln 2 ML Bot EYELF SCH (08:42)
[2023-10-17] MEDS: Tropicamide 1% Ophth Soln 3 ML Bottle EYELF SCH (08:45)
[2023-10-17] MEDS: Tetracaine HCl/PF 0.5% 4 ML Bottle EYEBOTH SCH (09:08)
[2023-10-17] MEDS: Lidocaine 1% PF 2 ML SDV INJECT SCH (09:10)
[2023-10-17] MEDS: Cefuroxime 10 MG/ML SYRINGE EYELF SCH (09:10)
[2023-10-17] MEDS: Pilocarpine 4% Ophth Soln 15 ML Bot EYELF SCH (09:11)
[2023-10-17 10:01] VITALS: BP 208/79; PULSE 52
== END 2023-10-17 09:55 | disposition home or self-care (01) ==
LOC: JD.SDS 07:21
PROVIDERS: ATTEND Ophthalmology
DX: H25.813 Combined forms of age-related cataract, bilateral (principal); H21.81 Floppy iris syndrome; H21.42 Pupillary membranes, left eye; H57.813 Brow ptosis, bilateral; H16.103 Unspecified superficial keratitis, bilateral; H16.223 Keratoconjunctivitis sicca, not specified as Sjogren's, bilateral; H02.831 Dermatochalasis of right upper eyelid; H02.834 Dermatochalasis of left upper eyelid; I10 Essential (primary) hypertension; E78.00 Pure hypercholesterolemia, unspecified; I25.10 Atherosclerotic heart disease of native coronary artery without angina pectoris; J45.909 Unspecified asthma, uncomplicated; Z79.899 Other long term (current) drug therapy; Z88.2 Allergy status to sulfonamides
CPT/HCPCS: 66982; A9270; J0697; J3490

== ENCOUNTER 2023-11-14 14:39 | Day surgery (SDC) | payer MEDICARE, BC ==
[2023-11-14 14:55] VITALS: PULSE 60
[2023-11-14] MEDS: Ofloxacin 0.3% Ophth Soln 5 ML Bottle EYERT SCH (14:57)
[2023-11-14] MEDS: Brimonidine 0.2% Ophth Soln 5 ML Bottle EYERT SCH (15:08)
[2023-11-14] MEDS: Phenylephrine 2.5% Ophth Soln 2 ML Bot EYERT SCH (15:22)
[2023-11-14] MEDS: Tropicamide 1% Ophth Soln 3 ML Bottle EYERT SCH (15:25)
[2023-11-14] MEDS: Tetracaine HCl/PF 0.5% 4 ML Bottle EYEBOTH SCH (16:03)
[2023-11-14] MEDS: Lidocaine 1% PF 2 ML SDV INJECT SCH (16:22)
[2023-11-14] MEDS: Pilocarpine 4% Ophth Soln 15 ML Bot EYERT SCH (16:36)
[2023-11-14] MEDS: Cefuroxime 10 MG/ML SYRINGE EYERT SCH (16:36)
[2023-11-14 16:50] VITALS: BP 181/85
== END 2023-11-14 16:46 | disposition home or self-care (01) ==
LOC: JD.SDS 14:39
PROVIDERS: ATTEND Ophthalmology
DX: H25.811 Combined forms of age-related cataract, right eye (principal); H21.81 Floppy iris syndrome; H21.41 Pupillary membranes, right eye; H52.31 Anisometropia; H57.813 Brow ptosis, bilateral; H02.831 Dermatochalasis of right upper eyelid; H02.834 Dermatochalasis of left upper eyelid; H16.103 Unspecified superficial keratitis, bilateral; H11.823 Conjunctivochalasis, bilateral; H16.223 Keratoconjunctivitis sicca, not specified as Sjogren's, bilateral; I10 Essential (primary) hypertension; E78.2 Mixed hyperlipidemia; I25.10 Atherosclerotic heart disease of native coronary artery without angina pectoris; Z79.899 Other long term (current) drug therapy; Z88.2 Allergy status to sulfonamides
CPT/HCPCS: 66982; A9270; J0697; J3490; V2632